=== PATIENT | female | born 1960 | race Two or more races ===

== ENCOUNTER 2017-08-25 09:24 | Outpatient (CLI) | payer OTHER | END 2017-08-25 17:21 | disposition home or self-care (01) | LOC: SONOGRAMA 09:24 | DX: E04.8 Other specified nontoxic goiter (principal) ==

== ENCOUNTER 2018-07-03 16:33 | Emergency (ER) | payer OTHER ==
[~2018-07-03] VITALS: Ht 152.4 cm; Wt 70.3 kg
[2018-07-03] MEDS ORDERED: TOPROL XL50 M1 (16:55)
== END 2018-07-03 17:57 | disposition home or self-care (01) ==
LOC: ER 16:33
DX: B34.9 Viral infection, unspecified (principal); I10 Essential (primary) hypertension

== ENCOUNTER 2018-11-11 10:27 | Emergency (ER) | payer OTHER ==
[~2018-11-11] VITALS: Ht 152.4 cm; Wt 70.8 kg
[~2018-11-11 10:27] MED LIST: TOPROL XL50 M1
== END 2018-11-11 16:13 | disposition home or self-care (01) ==
LOC: ER 10:27
DX: R42 Dizziness and giddiness (principal); F41.1 Generalized anxiety disorder

== ENCOUNTER 2019-05-14 09:41 | Outpatient (CLI) | payer OTHER ==
[~2019-05-14] VITALS: Ht 152.4 cm; Wt 68.9 kg
== END 2019-05-14 10:05 | disposition home or self-care (01) ==
LOC: OFIC 805 09:41
DX: H90.3 Sensorineural hearing loss, bilateral (principal); H60.8X3 Other otitis externa, bilateral

== ENCOUNTER → 2019-07-29 | Emergency (ER) | payer OTHER ==
[~2019-07-29] VITALS: Ht 152.4 cm; Wt 68.9 kg
[~2019-07-29] MED LIST changes: +ACID REDUCER20 M1 PO; +BACTRIM DS TAB1 EACH PO; +CHILDREN'S ASPI81 MG PO; +DICLOFENAC SODI75 MG PO; +LIPITOR20 MG PO; +METFORMIN HCL500 M3 PO; +MICROZIDE12.5 MG PO; +ZETIA10 MG PO
== END | disposition home or self-care (01) ==
LOC: ER 22:15
DX: S10.87XA Other superficial bite of other specified part of neck, initial encounter (principal); L08.9 Local infection of the skin and subcutaneous tissue, unspecified; W57.XXXA Bitten or stung by nonvenomous insect and other nonvenomous arthropods, initial encounter; Y93.89 Activity, other specified; Y92.89 Other specified places as the place of occurrence of the external cause; Y99.8 Other external cause status

== ENCOUNTER 2022-12-23 15:06 | Inpatient (IN) | payer OTHER ==
[~2022-12-23] VITALS: Ht 152.4 cm; Wt 65.3 kg
--- NOTE | 2022-12-23 15:28 | NUR ---
PTE ALERTA Y ORIENTADA X3. PTE REFIERE DOLOR ABDOMINAL Y DIAREAH X10 DESDE HOY EN LA MADRUGADA. SE MIDEN S/V Y SE UBICA.
--- NOTE | 2022-12-23 16:40 | NUR ---
PTE DE 62 ANOS ALERTA Y ORIENTADA POR X3 EVALUADA POR DR DANIELS. MANEJADA POR DAVID WALTERS. SE ORIENTA SOBRE [place] MEDICO. PTE REFIERE ENTENDER. SE RECOLECTAN MUESTRAS DE LAB CON MEDIDAS ASEPTCIAS. SE ADMINISTRA MEDICAMENTO MICAH ORDEN. MEDICA. PTE EN ESPERA DE CT.
== END 2022-12-25 14:04 | disposition home or self-care (01) | DRG 440 ==
LOC: ER 15:06 → MEDI 19:12
PROVIDERS: ADMIT Internal Medicine; ATTEND Internal Medicine
PROC: BW21YZZ Computerized Tomography (CT Scan) of Abdomen and Pelvis using Other Contrast (ICD-10-PCS; principal; 2022-12-23)
DX: K85.90 Acute pancreatitis without necrosis or infection, unspecified (principal); K85.30 Drug induced acute pancreatitis without necrosis or infection; I10 Essential (primary) hypertension; E11.9 Type 2 diabetes mellitus without complications; Z79.4 Long term (current) use of insulin; M79.7 Fibromyalgia

== ENCOUNTER 2022-12-26 00:37 | Emergency (ER) | payer OTHER ==
[~2022-12-26] VITALS: Ht 152.4 cm; Wt 70.3 kg
== END 2022-12-26 11:02 | disposition home or self-care (01) ==
LOC: ER 00:37
DX: K62.5 Hemorrhage of anus and rectum (principal); E11.9 Type 2 diabetes mellitus without complications; Z79.84 Long term (current) use of oral hypoglycemic drugs; K57.90 Diverticulosis of intestine, part unspecified, without perforation or abscess without bleeding

== ENCOUNTER 2024-09-12 09:32 | Emergency (ER) | payer OTHER ==
[~2024-09-12] VITALS: Ht 152.4 cm; Wt 65.3 kg
[2024-09-12] MEDS ORDERED: XIGDUO XR 10 M1 EAC1 PO (10:08)
[2024-09-12] MEDS ORDERED: DEXAMETHASONE SODIUM PHOSPHATE 4 MG/ML VIAL IM STA (12:46)
[2024-09-12] MEDS ORDERED: ORPHENADRINE CITRATE 30 MG/ML AMPUL IM STA (12:47)
[2024-09-12] MEDS ORDERED: KETOROLAC TROMETHAMINE 30 MG VIAL IM STA (12:48)
[2024-09-12] MEDS ORDERED: DEXAMETHASONE0.5 MG PO (15:52)
[2024-09-12] MEDS ORDERED: HORIZANT300 MG PO (15:55)
== END 2024-09-12 16:35 | disposition home or self-care (01) ==
LOC: ER 09:35
DX: M71.58 Other bursitis, not elsewhere classified, other site (principal); M85.861 Other specified disorders of bone density and structure, right lower leg
CPT/HCPCS: 73503; 96372; 99283; J1100; J1885; J2360

== ENCOUNTER 2024-10-04 18:03 | Emergency (ER) | payer OTHER ==
[~2024-10-04] VITALS: Ht 152.4 cm; Wt 64.0 kg
[~2024-10-04 18:03] MED LIST changes: +DEXAMETHASONE0.5 MG PO; +HORIZANT300 MG PO; +XIGDUO XR 10 M1 EAC1 PO
[2024-10-04] MEDS ORDERED: 0.9 % SODIUM CHLORIDE 1,000 ML IV ONE (20:15)
[2024-10-04] MEDS ORDERED: ONDANSETRON HCL 2 MG/ML VIAL IV ONE (20:15)
[2024-10-04] MEDS ORDERED: FAMOtidine 10 MG/ML (4ML VIAL) IV ONE (20:15)
[2024-10-04] MEDS ORDERED: DICYCLOMINE HCL 20 MG TABLET PO ONE (20:15)
[2024-10-04 20:42] LABS: HEMATOCRIT 42.4 % (36.0-45.00); HEMOGLOBIN 14.4 g/dL (12.0-15.00); MEAN CELL VOLUME 80.8 fL (80.00-100.00); MEAN CORPUSCULAR HEMOGLOBIN 27.6 pg (27.00-32.0); MEAN CORPUSCULAR HGB CONC 34.1 g/dl (32.0-36.0); PLATELET COUNT 168 K/uL (150-450); RED BLOOD COUNT 5.24 M/uL (4.00-6.00); RED CELL DISTRIBUTION WIDTH 14.2 % (11.5-14.5)
[2024-10-04 21:26] LABS: ALBUMIN 3.7 gm/dL (3.4-5.0); BILIRUBIN TOTAL 0.93 mg/dL (0.3-1.2); CREATININE SERUM 0.61 mg/dL (0.55-1.02); GFR 98.13; GLOBULINA 3.5 G/DL (2.4-3.5); POTASSIUM 3.3 mEq/L (3.5-5.1); TOTAL PROTEIN 7.2 gm/dL (6.4-8.2)
[2024-10-04] MEDS ORDERED: KETOROLAC TROMETHAMINE 30 MG VIAL IV ONE (21:45)
[2024-10-04] MEDS ORDERED: PROTONIX40 MG PO (21:53)
[2024-10-04] MEDS ORDERED: PROBIOTIC1 EAC2 PO (21:53)
[2024-10-04] MEDS ORDERED: LEVSIN/SL0.125 MG SL (21:53)
[2024-10-04] MEDS ORDERED: ZOFRAN8 MG PO (21:53)
== END 2024-10-04 22:29 | disposition home or self-care (01) ==
LOC: ER 18:04
PROVIDERS: General Practice
DX: K52.9 Noninfective gastroenteritis and colitis, unspecified (principal); Z20.822 Contact with and (suspected) exposure to COVID-19; E11.9 Type 2 diabetes mellitus without complications; Z79.84 Long term (current) use of oral hypoglycemic drugs; I10 Essential (primary) hypertension; G47.30 Sleep apnea, unspecified

== ENCOUNTER → 2025-06-01 | Emergency (ER) | payer OTHER ==
[~2025-06-01] VITALS: Ht 152.4 cm; Wt 61.2 kg
[~2025-06-01] MED LIST changes: +ACETAMINOPHEN 500 MG GEL..CAP PO ONE; +GUAIFENESIN 200 MG/10 ML BLIST.PACK PO ONE; +GUAIFENESIN DM PO; +LEVSIN/SL0.125 MG SL; +OSEL75CA PO; +PEPCID AC20 MG PO; +PROBIOTIC1 EAC2 PO; +PROTONIX40 MG PO; +ZOFRAN8 MG PO
[2025-06-01 15:26] LABS: COVID-19 AG NEGATIVE (NEGATIVE)
== END | disposition home or self-care (01) ==
LOC: ER 11:11
PROVIDERS: Student in an Organized Health Care Education/Training Program
DX: J10.1 Influenza due to other identified influenza virus with other respiratory manifestations (principal); R05.8 Other specified cough; R50.9 Fever, unspecified; R73.03 Prediabetes; Z20.822 Contact with and (suspected) exposure to COVID-19; I10 Essential (primary) hypertension